=== PATIENT | male | born 2000 | race Caucasian/White ===

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

== ENCOUNTER 2022-07-30 06:32 | Emergency (ER) | payer OTHER ==
[2022-07-30] MEDS ORDERED: Sodium Chloride 0.9% 1000 ML 1,000 ML IV STA (07:17)
[2022-07-30] MEDS ORDERED: Sodium Chloride 0.9% 1000 ML 1,000 ML ONE (07:25)
--- NOTE | 2022-07-30 07:36 | ERPHSYRPT ---
- History of Present Illness Source: patient Exam Limitations: no limitations Patient Subjective Stated Complaint: pt states I have been running a fever all night. I also have diarrhea. Triage Nursing Assessment: pt ambulated into the er; pt is axo x4; c/o fever; c/o diarrhea; denies N/V; afebrile; skin PDW; no respiratory distress present; hyperactive bowel sounds in all quads; clear lung sounds in all lobes; mucus membranes pink and moist; vitals wnl; pain to anupama flank Physician History: 22 yo WM w diarrhea/fever x 3 days. Nausea/vomiting has resolved. Pt has mild alberto-umbilical pain which he describes as "stabbing." He has dysuria wo h ematuria/frequency. Cough/coryza/ST/melena/hematochezia are all denied. Timing/Duration: other (3 days) Fever Severity: mild Associated Symptoms: abdominal pain, nausea/vomiting (Resolved) Allergies/Adverse Reactions: Penicillins Allergy (Verified 07/30/22 06:46) Hives Sulfa (Sulfonamide Antibiotics) Allergy (Verified 07/30/22 06:46) Hives Home Medications: armodafiniL [Armodafinil] 150 mg PO 07/30/22 [History] Hx Tetanus, Diphtheria Vaccination/Date Given: No (unknown) Hx Influenza Vaccination/Date Given: No Hx Pneumococcal Vaccination/Date Given: No Travel Risk - International Travel Have you traveled outside of the country in past 3 weeks: No - Coronavirus Screening Are you exhibiting any of the following symptoms?: Yes Symptoms: Fever, Vomiting/Diarrhea Close contact with a COVID-19 positive Pt in past 14-21 Days: No - Vaccine Status Have you recieved a Covid-19 vaccination: No - Review of Systems Constitutional: No Symptoms, Fever, Malaise Eyes: No Symptoms Ears, Nose, & Throat: No Symptoms Respiratory: No Symptoms Cardiac: No Symptoms Abdominal/Gastrointestinal: No Symptoms, Abdominal Pain, Nausea, Vomiting, Diarrhea Genitourinary Symptoms: No Symptoms, Dysuria Musculoskeletal: No Symptoms Skin: No Symptoms Neurological: No Symptoms Psychological: No Symptoms Endocrine: No Symptoms Hematologic/Lymphatic: No Symptoms Immunological/Allergic: No Symptoms - Past Medical History Pertinent Past Medical History: No - Past Surgical History Past Surgical History: Yes Other Surgical History: 2 elbow surgeries, wrist surgeries - Social History Smoking Status: Never smoker Exposure to second hand smoke: Yes Drug Use: none Patient Lives Alone: No - Nursing Vital Signs Nursing Vital Signs: Initial Vital Signs Temperature 99.6 F 07/30/22 06:47 Pulse Rate 99 H 07/30/22 06:47 Respiratory Rate 18 07/30/22 06:47 Blood Pressure 130/64 07/30/22 06:47 O2 Sat by Pulse Oximetry 97 07/30/22 06:47 Pain Scale Pain Intensity 0 WNL - Physical Exam General Appearance: no apparent distress Eye Exam: PERRL/EOMI, eyes nml inspection ENT Exam: normal ENT inspection, no apparent trauma Neck Exam: normal inspection, non-tender, supple, full range of motion, trachea midline Respiratory Exam: normal breath sounds, lungs clear, no respiratory distress Cardiovascular/Chest Exam: normal heart sounds, regular rate/rhythm, murmur, normal peripheral pulses Gastrointestinal/Abdominal Exam: soft, tenderness (Mild albreto-umbilical TTP wo guarding or rebound) Extremity Exam: non-tender, normal range of motion, normal inspection, normal capillary refill Neurologic Exam: alert, oriented x 3, cooperative, division leader II-XII nml as tested, normal mood/affect, nml cerebellar function, nml station & gait, sensation nml Skin Exam: normal color, warm, dry Lymphatic: No adenopathy SpO2 Interpretation: normal SpO2: 96 O2 Delivery: Room Air Ordered Tests: Active Orders 24 hr Category Date Time Status AMYLASE Stat Lab 07/30/22 07:00 Completed CBC W DIFF Stat Lab 07/30/22 07:00 Completed CMP Stat Lab 07/30/22 07:00 Completed LIPASE Stat Lab 07/30/22 07:00 Completed UA W/RFX UR CULTURE Stat Lab 07/30/22 08:45 Completed Medication Summary Discontinued Medications Generic Name Dose Route Start Last Admin Trade Name Freq PRN Reason Stop Dose Admin Sodium Chloride 1,000 mls @ 999 mls/hr 07/30/22 07:17 07/30/22 08:47 Sodium Chloride 0.9% 1000 Ml IV 07/30/22 08:17 Infused .Q1H1M STA Infusion Sodium Chloride Confirm 07/30/22 07:25 Sodium Chloride 0.9% 1000 Ml Administered 07/30/22 07:26 Dose 1,000 mls @ ud .ROUTE .[facility] [place]-MED ONE Lab/Rad Data: Laboratory Result Diagrams 07/30/22 07:00 07/30/22 07:00 Laboratory Results 07/30/22 07/30/22 07/30/22 Range/Units 08:45 07:30 07:30 WBC (4.0-10.5) x10^3/uL RBC (4.1-5.6) x10^6/uL Hgb (12.5-18.0) g/dL Hct (42-50) % MCV (78-100) fL MCH (26-32) pg MCHC (32-36) g/dL RDW (11.5-14.0) % Plt Count (150-450) x10^3/uL MPV (7.5-11.0) fL Gran % (36.0-66.0) % Immature Gran % (Auto) (0.00-0.4) % Nucleat RBC Rel Count (0.00-0.1) % Eos # (Auto) (0-0.5) x10^3/uL Immature Gran # (Auto) (0.00-0.03) x10^3u/L Absolute Lymphs (auto) (1.0-4.6) x10^3/uL Absolute Monos (auto) (0.0-1.3) x10^3/uL Absolute Nucleated RBC (0.00-0.01) x10^3u/L Lymphocytes % (24.0-44.0) % Monocytes % (0.0-12.0) % Eosinophils % (0.00-5.0) % Basophils % (0.0-0.4) % Absolute Granulocytes (1.4-6.9) x10^3/uL Basophils # (0-0.4) x10^3/uL Sodium (137-145) mmol/L Potassium (3.5-5.1) mmol/L Chloride (98-107) mmol/L Carbon Dioxide (22-30) mmol/L Anion Gap (5-15) MEQ/L BUN (9-20) mg/dL Creatinine (0.66-1.25) mg/dL Estimated GFR ML/MIN Glucose (74-106) mg/dL Calcium (8.4-10.2) mg/dL Total Bilirubin (0.2-1.3) mg/dL AST (17-59) U/L ALT (0-50) U/L Alkaline Phosphatase (38-126) U/L Serum Total Protein (6.3-8.2) g/dL Albumin (3.5-5.0) g/dL Amylase (30-110) U/L Lipase (23-300) U/L Urine Color Yellow (Yellow) Urine Appearance Clear (Clear) Urine pH 5.5 (4.6-8.0) Ur Specific [place] 1.025 (1.005-1.030) Urine Protein Trace A (Negative) Urine Glucose (UA) Negative (Negative) mg/dL Urine Ketones Trace A (Negative) Urine Blood Negative (Negative) Urine Nitrite Negative (Negative) Urine Bilirubin Negative (Negative) Urine Urobilinogen 0.2 (0.2) mg/dL Ur Leukocyte Esterase Negative (Negative) U Hyaline Cast (Auto) 3-5 A (0-2) /LPF Urine Microscopic RBC 0-2 (0-5) /HPF Urine Microscopic WBC 3-5 (0-5) /HPF Ur Epithelial Cells Rare (None Seen) /HPF Urine Bacteria None Seen (None Seen) /HPF Urine Culture Reflexed NO (NO) Influenza Type A Ag NEGATIVE (NEGATIVE) Influenza Type B Ag NEGATIVE (NEGATIVE) RSV (PCR) NEGATIVE (NEGATIVE) SARS-CoV-2 (PCR) NEGATIVE (NEGATIVE) Group A Strep Antibody NOT DETECTED (NEGATIVE) Slides for Path Review 07/30/22 07/30/22 Range/Units 07:00 07:00 WBC 7.0 (4.0-10.5) x10^3/uL RBC 5.05 (4.1-5.6) x10^6/uL Hgb 15.8 (12.5-18.0) g/dL Hct 46.0 (42-50) % MCV 91.1 (78-100) fL MCH 31.3 (26-32) pg MCHC 34.3 (32-36) g/dL RDW 11.9 (11.5-14.0) % Plt Count 212 (150-450) x10^3/uL MPV 8.9 (7.5-11.0) fL Gran % 86.8 H (36.0-66.0) % Immature Gran % (Auto) 0.4 (0.00-0.4) % Nucleat RBC Rel Count 0.0 (0.00-0.1) % Eos # (Auto) 0.01 (0-0.5) x10^3/uL Immature Gran # (Auto) 0.03 (0.00-0.03) x10^3u/L Absolute Lymphs (auto) 0.26 L (1.0-4.6) x10^3/uL Absolute Monos (auto) 0.61 (0.0-1.3) x10^3/uL Absolute Nucleated RBC 0.00 (0.00-0.01) x10^3u/L Lymphocytes % 3.7 L (24.0-44.0) % Monocytes % 8.7 (0.0-12.0) % Eosinophils % 0.1 (0.00-5.0) % Basophils % 0.3 (0.0-0.4) % Absolute Granulocytes 6.05 (1.4-6.9) x10^3/uL Basophils # 0.02 (0-0.4) x10^3/uL Sodium 138 (137-145) mmol/L Potassium 3.9 (3.5-5.1) mmol/L Chloride 107 (98-107) mmol/L Carbon Dioxide 20 L (22-30) mmol/L Anion Gap 15.5 H (5-15) MEQ/L BUN 11 (9-20) mg/dL Creatinine 0.72 (0.66-1.25) mg/dL Estimated GFR > 60.0 ML/MIN Glucose 104 (74-106) mg/dL Calcium 8.6 (8.4-10.2) mg/dL Total Bilirubin 0.80 (0.2-1.3) mg/dL AST 28 (17-59) U/L ALT 26 (0-50) U/L Alkaline Phosphatase 65 (38-126) U/L Serum Total Protein 7.2 (6.3-8.2) g/dL Albumin 4.1 (3.5-5.0) g/dL Amylase 67 (30-110) U/L Lipase 48 (23-300) U/L Urine Color (Yellow) Urine Appearance (Clear) Urine pH (4.6-8.0) Ur Specific [place] (1.005-1.030) Urine Protein (Negative) Urine Glucose (UA) (Negative) mg/dL Urine Ketones (Negative) Urine Blood (Negative) Urine Nitrite (Negative) Urine Bilirubin (Negative) Urine Urobilinogen (0.2) mg/dL Ur Leukocyte Esterase (Negative) U Hyaline Cast (Auto) (0-2) /LPF Urine Microscopic RBC (0-5) /HPF Urine Microscopic WBC (0-5) /HPF Ur Epithelial Cells (None Seen) /HPF Urine Bacteria (None Seen) /HPF Urine Culture Reflexed (NO) Influenza Type A Ag (NEGATIVE) Influenza Type B Ag (NEGATIVE) RSV (PCR) (NEGATIVE) SARS-CoV-2 (PCR) (NEGATIVE) Group A Strep Antibody (NEGATIVE) Slides for Path Review YES - Progress Progress: improved Progress Note: 07/30/22 11:58 Nursing note and vital signs reviewed No food or housing insecurities noted All lab results reviewed and shared w pt Additional history per 07/30/22 12:00 1L NS bolus Serial abdominal exams w mild alberto-umbilical TTP wo guarding or rebound Pt most likely has viral illness wo evidence of surgical abdomen Pt discharged w Rx for Bentyl 07/30/22 12:02 07/30/22 12:03 Counseled pt/family regarding: lab results, diagnosis, need for follow-up Medical Desision Making - Independent Historian Additional History obtained from: Spouse - Diagnostic Testing Diagnostic test were ordered, analyzed, and reviewed by me: Yes - Risk of complications The pt has a mod risk of morbidity or mortality based on: Need for prescription drug management - Departure Departure Disposition: Home Clinical Impression: Viral illness Condition: Stable Critical Care Time: No Referrals: KADE MARTIN RN CLINICAL TRIALS [Primary Care Provider] - Follow up/PCP as directed Instructions: Diarrhea in Adolescents and Adults, Fever, Adult (DC) Additional Instructions: Fluids/Rest Bentyl for abdominal pain/diarrhea Return to ER for increasing abdominal pain or persistent temperature greater than 100.5 Forms: Work/School Release Form Prescriptions: Dicyclomine HCl 20 mg [Bentyl 20 mg] 20 mg PO Q6HPRN PRN #10 tablet PRN Reason: Pain
[2022-07-30 07:37] LABS: Absolute Neutrophil Ct (ANC) 6.05 x10^3/uL (1.4-6.9); BASOPHIL % 0.3 % (0.0-0.4); Basophil (Absolute #) 0.02 x10^3/uL (0-0.4); Eosinophil % 0.1 % (0.00-5.0); Eosinophil (Absolute #) 0.01 x10^3/uL (0-0.5); Hemoglobin 15.8 g/dL (12.5-18.0); IMMATURE GRAN # 0.03 x10^3u/L (0.00-0.03); IMMATURE GRAN % 0.4 % (0.00-0.4); Lymphocyte (Absolute #) 0.26 x10^3/uL (1.0-4.6); Lymphocytes % 3.7 % (24.0-44.0); Mean Cell Volume 91.1 fL (78-100); Mean Corpuscular Hemoglobin 31.3 pg (26-32); Mean Corpuscular Hgb Concent. 34.3 g/dL (32-36); Mean Platelet Volume 8.9 fL (7.5-11.0); Monocyte (Absolute #) 0.61 x10^3/uL (0.0-1.3); Monocytes % 8.7 % (0.0-12.0); Neutrophil % 86.8 % (36.0-66.0); Platelet Count 212 x10^3/uL (150-450); Red Blood Count 5.05 x10^6/uL (4.1-5.6); Red Cell Distribution Width 11.9 % (11.5-14.0)
[2022-07-30 07:48] LABS: ALBUMIN 4.1 g/dL (3.5-5.0); ALKALINE PHOSPHATASE 65 U/L (38-126); AMYLASE 67 U/L (30-110); ANION GAP 15.5 MEQ/L (5-15); BLOOD UREA NITROGEN 11 mg/dL (9-20); CHLORIDE 107 mmol/L (98-107); Calcium 8.6 mg/dL (8.4-10.2); Carbon Dioxide 20 mmol/L (22-30); Creatinine 1 0.72 mg/dL (0.66-1.25); EST GLOMERULAR FILTRATION RATE > 60.0 ML/MIN; Glucose 104 mg/dL (74-106); LIPASE 48 U/L (23-300); Potassium 3.9 mmol/L (3.5-5.1); SGOT/AST 28 U/L (17-59); SGPT/ALT 26 U/L (0-50); SODIUM 138 mmol/L (137-145); Total Protein 7.2 g/dL (6.3-8.2)
[2022-07-30 08:12] LABS: INFLUENZA A NEGATIVE (NEGATIVE); INFLUENZA B NEGATIVE (NEGATIVE); RESPIRATORY SYNCTIAL VIRUS NEGATIVE (NEGATIVE); SARS-CoV-2 Xpert Express NEGATIVE (NEGATIVE)
[2022-07-30 09:10] LABS: Appearance Clear (Clear); Bacteria None Seen /HPF (None Seen); Bilirubin Negative (Negative); Blood Negative (Negative); Epithelial Cells Rare /HPF (None Seen); Glucose, Urine Negative (Negative); Ketones Trace (Negative); Leukocyte Esterase Negative (Negative); Nitrite Negative (Negative); Ph 5.5 (4.6-8.0); Protein,Urine Dip Trace (Negative); RBC 0-2 /HPF (0-5); Specific Gravity 1.025 (1.005-1.030); Urobilinogen 0.2 mg/dL (0.2)
[2022-07-30 09:29] LABS: ADD URINE CULTURE? NO (NO)
[2022-07-30 09:56] VITALS: BP 112/65; PULSE 85
[2022-07-30 11:03] LABS: Slide Review 1 YES
[2022-07-30 12:03] VITALS: O2SAT 96
== END 2022-07-30 10:01 | disposition home or self-care (01) ==
LOC: ED 06:32
DX: B34.9 Viral infection, unspecified (principal); R19.7 Diarrhea, unspecified; R50.9 Fever, unspecified; R10.33 Periumbilical pain; R30.0 Dysuria; Z79.899 Other long term (current) drug therapy; Z28.310 Unvaccinated for COVID-19
CPT/HCPCS: 0241U; 36415; 80053; 81001; 82150; 83690; 85025; 87651; 96360; 99283